=== PATIENT | male | born 1965 | race Caucasian/White ===

== ENCOUNTER 2021-03-05 23:38 | Inpatient (IN) | payer OTHER ==
[2021-03-06] MEDS ORDERED: ACETAMINOPHEN TAB 650MG DOSE (2X325MG) PO PRN (03:35)
[2021-03-06] MEDS ORDERED: MAALOX 30 ML SUSP *UDC PO PRN (03:35)
[2021-03-06] MEDS ORDERED: MOM 30ML SUSPENSION UDC PO PRN (03:35)
[2021-03-06] MEDS ORDERED: hydrOXYzine 50 MG TAB PO PRN (03:35)
[2021-03-06] MEDS ORDERED: traZODone 50 MG TAB PO PRN (03:35)
[2021-03-06 05:24] VITALS: BP 124/81
[2021-03-06] MEDS: NICOTINE 21MG/24HR 1 EA TRANSDERMAL TD SCH (09:00)
--- NOTE | 2021-03-06 11:45 | MHHPEPDOC ---
General Date Of Admission: March 05, 2021 Legal Status: Chief Complaint "Dr Zambrano didn't like my responses in the Depression questionnaire" History of Present Illness HISTORY OF THE PRESENT ILLNESS: Patient is a 55 -year-old ,domicile, male, who was admitted to [facility] on legal status after being transferred from [facility], where he had reported after being sent to the ED by his primary care provider . Patient states that he reported for an appointment with , his primary care physician. States that he made an appointment to see the Doctor because he has been very depressed . States that he filled out the depression questionnaire at the doctor's office and the doctor "didn't like my responses to the Depression questionnaire". Says he was found to be severely depressed and advised to go to the emergency department. Says his daughter drove him to [facility], and later was transferred to [place] [facility]. Patient states that he's been " in a dark place" recently. Says that has been getting more and more depressed. Says he has had depressive symptoms for "years". Says it started when he was kicked out of high school for drug use. Says he has had many stressors in his life over the years like; he was forced to retire out of the after 21 years of service, he has had 3 DUIs, he caught his cheating on him and they got , he recently got into a big fight with a very close friend, he lost his brother last fall and his dad 3 months ago. States that all of these stressors have become overwhelming and he was starting to "feel boxed in". He told his daughter that his depression was getting worse and they made an appointment with his primary doctor. He states that he was diagnosed with Depression around 2016 and he was supposed to be following up with [facility]. He states that he stopped going for therapy at [facility] because he had no transportation due to his [employer] driver's license being suspended, and he also stopped taking his medication because his insurance was not paying and he was unable to afford medication. States that he does not remember what medication was prescribed at that time. States that he was an alcoholic, was drinking up to 18 pack a night, but he quit drinking 6 years ago. He stopped smoking cigarettes 3 years ago. Denies using any other substances .States that over the past 3 weeks he has been feeling depressed, worthless, hopeless, stressed and has had difficulty concentrating . States that he was becoming overwhelmed and was starting to feel " boxed in". States that he realizes he needs to be back on medication for Depression and start seeing a therapist again. He hopes to be set up with followup with [facility] because it is closer to him. He denies current suicidal ideations. Denies HI/AH/VH. PER ED REPORT; Pt was transferred from [facility] for a MHE. Pt was medically cleared at [facility]. Per records from [facility], pt has SI with no plan.. Pt states that he talked to his daughter about being depressed & so she made him an appointment with a primary care provider to discuss this. Pt states that he went to his first appointment with the PCP & had to fill out a questionnaire about depression & SI. Pt states that he scored "high risk" & was sent to [facility] ED. Pt states "I'm not in a good place." He states that he has SI but states "everyone thinks about suicide." He initially denied having a plan, but then stated "I don't have any guns or knives at home, but I do have nail guns & scissors." He states that he often thinks that he would be better off . When asked if he has any intent to act on the suicidal thoughts he states "I would never kill myself. But you never know, I might step down further at any point." Pt denies HI. He denies any hx of suicide attempts or self-harm. Pt denies both AH & VH. He does not appear to be psychotic. Pt reports racing thoughts & mood swings. He states that he suddenly becomes angry for no reason & "explodes." Pt states that he is pushing his friends away with his angry outbursts & he is lonely. Pt c/o depressed mood, anxiety, anger, poor concentration, decreased energy levels, poor sleep, & erratic appetite. Main triggers are that he lives alone & feels lonely, his brother last fall, his father three months ago, & he recently got into a fight with a friend. Pt was in the for 21 years & then retired. 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 Pt states that he has never been dx with a mental health px. He denies any hx of admissions. He does not currently have OP tx. Pt denies drug use & his tox screen was negative. Pt has a long hx of alcohol abuse. He has been sober for six years, but prior to that he drank an 18-pack of beer daily. Pt was arrested for DWI x3 & does not currently have a license. Pt states that he wants to be admitted to [facility] because he needs to start feeling better & needs to be put on meds. Pt initially thought that the ED MD would prescribe him psych meds but TW informed him that this is not the case. Psychiatric Review of Systems Depression (2 or more weeks): depressed mood, anhedonia, feelings of worthlesness, difficulty concentrating Noemí (4 or more days of): denies Psychosis: denies PTSD: denies Anxiety: stressor related anxiety Anxiety/ 6 months or more of: difficulty concentrating, irritability, muscle tension Past Psychiatric History Previous Psychiatric Diagnosis: Depression Previous Psychiatric Admissions: Denies Suicide Attempts: Denies Psychiatric Follow-up:Used to follow up with [facility] in 2016 Psychiatric medications: None Past Medical History Medical Problems Denies Head Injury: No Seizures: No Hospitalizations: No Surgeries: No Family Medical/Psychiatric HX Psychiatric Disorders: No Addiction: No Suicide Attemps/Completions: No Addiction History nicotine (Quit in 2018), alcohol (Quit in 2014) Social History Childhood: " Good". patient says but he was kicked out of high school for drug use Abuse/Trauma:Denies. Current Living Situation: Lives alone Education: Some College Employment: Yes Social Support: His adult daughter is supportive Legal: Denies any current. History of DUI's Marital: Mental Status Examination General Appearance: appears stated age, hospital scubs/clothing Build: average Demeanor: guarded Eye Contact: avoidant Activity: average Behavior: loss of interests Speech: clear, normal volume, reg/rate,rhythm,volume Mood: depressed, irritable Affect: constricted Thought Process: logical/linear Thought Content (Delusions): none reported Thought Content (Other): none reported Thought Content (Aggressive): none reported Perception (Hallucinations): none reported Perception (Other): none reported Cognition (Impairment of): none reported Cognition(Intelligence Est.): average Oriented: Awake, Alert, Oriented times three Insight: fair Judgment: Fair Psychosis: Denies Diagnoses Major Depressive Disorder, single episode, moderate A-FIB/CHADSVASC A-FIB History Current/History of A-Fib/PAF?: No Current PO Anticoag Therapy: No Assessment Patient is seen today. He is dressed in a hospital gown but appears well kempt.. He is alert and oriented X 3. He reports that he came in because his primary doctor " didn't like his responses in the Depression questionnaire" . He explains that he has been getting more and more depressed. Says that he has had depressive symptoms for "years". Says it started years ago when he was kicked out of high school for drug use. Says he has had many stressors in his life over the years like like ; he was forced to retire out of the after 21 years of service, he has had 3 DUIs, he caught his cheating on him and they got , he recently got into a big fight with a very close frien d, he lost his brother last fall and his dad 3 months ago. States that all of these stressors have become overwhelming and he was starting to "feel boxed in". He told his daughter that his depression was getting worse and they made an appointment with his primary doctor. He states that he was diagnosed with Depression around 2016 and he was supposed to be following up with [facility]. He states that he stopped going for therapy at [facility] because he had no transportation due to his [employer] driver's license being suspended, and he also stopped taking his medication his insurance was not paying and he was unable to afford them. States that he does not remember what medication was prescribed at that time. States that he was an alcoholic, was drinking up to 18 pack a night, but he quit drinking 6 years ago. He stopped smoking cigarettes 3 years ago. Denies using any other substances .States that over the past 3 weeks he has been feeling depressed, worthless, hopeless, stressed and difficulty concentrating .States that he realizes he needs to be back on medication for depression and needs to start seeing a therapist again. He hopes to be set up with followup with [facility] because it is closer to him. He states that he is depressed but states he feels better that yesterday and asking if he can be discharged tomorrow. He denies current suicidal ideations. Denies HI/AH/VH. He has been started on Zoloft 50 mg daily. He states that he has mostly been keeping to himself in his room since he was admitted. Encouraged him to interact with staff and peers and attend group sessions. Initial Treatment Plan 1. Patient was admitted on a [9.39] status. 2. Complete history was obtained. 3. With patients permission, family will be contacted and database will be expanded. 4. Patients medication regimen will be reviewed and changed accordingly. 5. Patient will be provided with protected environment. 6. Patient will be treated with individual, group, and milieu therapies. 7. Patient will receive supportive psych-education. 8. Discharge planning will commence immediately. 9. Outpatient follow-up treatment will be strongly recommended. 10. The initial treatment plan will focus initially on: * Depression. * Interpersonal conflict ESTIMATED LENGTH OF STAY: 3 to 7 DAYS. TIME SPENT COUNSELING AND COORDINATING INITIAL CARE: 60 minutes. N/A-No Antipsychotics Vital Signs Vital Signs Date Time Temp Pulse Resp B/P (MAP) Pulse Ox O2 Delivery O2 Flow Rate FiO2 03/06/21 05:24 97.8 59 20 124/81 (95) 98 Room Air Medications No Active Prescriptions or Reported Meds Allergies Coded Allergies: No Known Allergies (Unverified , 03/06/21) HEATHER ACOSTA NP March 06, 2021 11:45
--- NOTE | 2021-03-06 16:31 | HPEPDOC ---
[facility] Medical History & Physical Date of Admission March 06, 2021 Date of Service: March 06, 2021 History and Physical Chief complaint: Who presented to [facility] first was ideation History of present illness: Patient is a 55-year-old male with no significant past medical history who presented to the emergency room from his primary care providers office for suicidal ideation. Patient was admitted to the psychiatric service in the inpatient mental health unit. Hospitalist service was consulted for medical screening evaluation. Currently patient denies any headache, nausea, vomiting, chest pain, short of breath, palpitations experiencing abdominal pain, constipation, diarrhea, or urinary discomfort. Patient reports that his appetite and weight have been fairly consistent. 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 Review of Systems: 10 point review of systems complete, all negative otherwise stated in HPI Physical exam: - Vitals: BP [124/81], HR [59], RR [20], Sat [98%RA], Temp [97.8F] - General: Sitting up in bed, Speaking in full sentences, AAOx3 - HEENT: NC, AT, PERRLA - CVS: RRR, +S1S2, - Murmurs / rubs / gallops - Lungs: Fair air entry bilaterally, No appreciable wheezing / rales / rhonchi - Abdomen: Soft, Non-distended, Non-tender - Extremities: No lower extremity edema, No calf tenderness - Neuro: No focal motor or sensory deficit - Skin: No visible rashes Labs: See below Imaging: See below EKG: See below Assessment and Plan: Suicidal ideation - Patient was admitted to the inpatient mental health unit under the care of psychiatry - Currently being managed by psychiatry No significant past medical history DVT prophylaxis - Will continue with early ambulation Female nut sorter was present throughout the duration of this history and physical examination Thank you for this consultation; hospitalist service will now sign off, please reconsult as needed Vital Signs Vital Signs Date Time Temp Pulse Resp B/P (MAP) Pulse Ox O2 Delivery O2 Flow Rate FiO2 03/06/21 05:24 97.8 59 20 124/81 (95) 98 Room Air Home Medications No Active Prescriptions or Reported Meds Allergies Coded Allergies: No Known Allergies (Unverified , 03/06/21) GISELLE VORA MD March 06, 2021 16:31
[2021-03-06 18:00] VITALS: BP 127/66
[2021-03-06] MEDS ORDERED: SERTRALINE HCL 50 MG TAB PO SCH (21:00)
[2021-03-07 07:11] VITALS: BP 142/63
[2021-03-07] MEDS: NICOTINE 21MG/24HR 1 EA TRANSDERMAL TD SCH (09:00)
[2021-03-07] MEDS ORDERED: SERT50TA29 PO (09:14)
--- NOTE | 2021-03-07 15:35 | MHDSPDOC ---
[facility] Discharge Summary Discharge Summary DATE OF ADMISSION: March 06, 2021 at 03:35 DATE OF DISCHARGE: March 07, 2021 at 0915 DISCHARGE DIAGNOSES: Major Depressive Disorder, single episode, moderate REASON FOR ADMISSION: Patient is a 55 -year-old ,domicile, male, who was admitted to [facility] on 39 legal status after being transferred from [facility], where he had reported after being sent to the ED by his primary care provider . Patient states that he reported for an appointment with , his primary care physician. States that he made an appointment to see the Doctor because he has been very depressed . States that he filled out the depression questionnaire at the doctor's office and the doctor "didn't like my responses to the Depression questionnaire". Says he was found to be severely depressed and advised to go to the emergency department. Says his daughter drove him to [facility], and later was transferred to [facility]. Patient states that he's been " in a dark place" recently. Says that has been getting more and more depressed. Says he has had depressive symptoms for "years". Says it started when he was kicked out of high school for drug use. Says he has had many stressors in his life over the years like; he was forced to retire out of the after 21 years of service, he has had 3 DUIs, he caught his cheating on him and they got , he recently got into a big fight with a very close friend, he lost his brother last fall and his dad 3 months ago. States that all of these stressors have become overwhelming and he was starting to "feel boxed in". He told his daughter that his depression was getting worse and they made an appointment with his primary doctor. He states that he was diagnosed with Depression around 2016 and he was supposed to be following up with [facility]. 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 States that he does not remember what medication was prescribed at that time. States that he was an alc oholic, was drinking up to 18 pack a night, but he quit drinking 6 years ago. He stopped smoking cigarettes 3 years ago. Denies using any other substances .States that over the past 3 weeks he has been feeling depressed, worthless, hopeless, stressed and has had difficulty concentrating . States that he was becoming overwhelmed and was starting to feel " boxed in". States that he realizes he needs to be back on medication for Depression and start seeing a therapist again. He hopes to be set up with followup with [facility] because it is closer to him. He denies current suicidal ideations. Denies HI/AH/VH. PER ED REPORT; Pt was transferred from [facility] for a MHE. Pt was medically cleared at [facility]. Per records from [facility], pt has SI with no plan.. Pt states that he talked to his daughter about being depressed & so she made him an appointment with a primary care provider to discuss this. Pt states that he went to his first appointment with the PCP & had to fill out a questionnaire about de pression & SI. Pt states that he scored "high risk" & was sent to [facility] ED. Pt states "I'm not in a good place." He states that he has SI but states "everyone thinks about suicide." He initially denied having a plan, but then stated "I don't have any guns or knives at home, but I do have nail guns & scissors." He states that he often thinks that he would be better off . When asked if he has any intent to act on the suicidal thoughts he states "I would never kill myself. But you never know, I might step down further at any point." Pt denies HI. He denies any hx of suicide attempts or self-harm. Pt denies both AH & VH. He does not appear to be psychotic. Pt reports racing thoughts & mood swings. He states that he suddenly becomes angry for no reason & "explodes." Pt states that he is pushing his friends away with his angry outbursts & he is lonely. Pt c/o depressed mood, anxiety, anger, poor concentration, decreased energy levels, poor sleep, & erratic appetite. Main triggers are that he lives alone & feels lonely, his brother last fall, his father three months ago, & he recently got into a fight with a friend. Pt was in the for 21 years & then retired. 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 Pt states that he has never been dx with a mental health px. He denies any hx of admissions. He does not currently have OP tx. Pt denies drug use & his tox screen was negative. Pt has a long hx of alcohol abuse. He has been sober for six years, but prior to that he drank an 18-pack of beer daily. Pt was arrested for DWI x3 & does not currently have a license. Pt states that he wants to be a dmitted to [facility] because he needs to start feeling better & needs to be put on meds. Pt initially thought that the ED MD would prescribe him psych meds but TW informed him that this is not the case. Consultants Involved: See H + P by Hospitalist TREATMENT AND PROGRESS ON THE UNIT: Patient was admitted to the [facility] on a legal status he was afforded the following treatment modalities: 1) Individual Therapy 2) Group Therapy 3) Medication Management 4) Milieu Therapy 5) Safe Environment HOSPITAL COURSE: Patient was admitted to [facility] on a legal status. He was observed for 48 hours and he voices no suicidal thoughts, he denies depression that warrants continued hospitalization. Has good supports with son and daughter, wants to see a therapist regarding grief and stressors. He has legal issues, financial problems and interpersonal conflicts but none are overwhelming him at this time. He is requesting discharge and treatment team feel he is safe to be sent home today. DISCHARGE ASSESSMENT: In today's interview, patient is alert and oriented, pts dress is appropriate. Hygiene and grooming is well-kempt. Smiles on approach and is pleasant and engaged in the interview. Denies depression and anxiety. Denies suicidal and homicidal ideation, planning or intent. Denies and is not observed with francesca, psychotic symptoms of delusions, bizarre thinking, o bsessions, paranoia, ruminations illogical thoughts, flight of ideas or having poor insight and judgment. Patient has normal mentation, declines further hospitalization on a voluntary status and meets criteria for discharge today. MENTAL STATUS EXAMINATION ON DISCHARGE: Patient is a 55 -year-old ,domicile, male, who was admitted to [facility] on legal status after being transferred from [facility], where he had reported after being sent to the ED by his primary care provider scoring high depression questionnaire, has multiple stressors, and vague suicidal thoughts. Speech: Is fluid, conversant, normal rate, tone and volume Language skills are intact Thought processes including: linear and goal oriented Thought content: denies depression and anxiety. Denies suicidal/homicidal ideation, planning or intent. Abstract reasoning, and computation: fair Description of associations: denies, none observed Description of abnormal or psychotic thoughts: denies, none observed. Judgment: fair Insight: fair Orientation: alert and oriented to person, place, time and situation Recent and remote memory: intact Attention span and concentration: good Language: expansive Fund of knowledge: average Mood: Euthymic Mood Affect: reactive MEDICATIONS ON DISCHARGE: See Medication Reconciliation PLAN/FOLLOWUP ARRANGEMENTS: Patient is following up with [facility] The amount of time spent in the coordination of care for this patient was approximately 25 minutes. ETOH/Disorder Med Rx ETOH/DRUG DISORDER RX: N/A Vital Signs/I&Os Vital Signs Date Time Temp Pulse Resp B/P (MAP) Pulse Ox O2 Delivery O2 Flow Rate FiO2 03/07/21 07:11 98.5 58 20 142/63 (89) 100 Room Air Medications Scheduled Sertraline HCl (Sertraline HCl) 50 Mg Tablet, 50 MG PO QHS for Depression, #7 Allergies Coded Allergies: No Known Allergies (Unverified , 03/06/21) HEATHER ACOSTA NP March 07, 2021 09:15
== END 2021-03-07 10:05 | disposition home or self-care (01) | DRG 885 ==
LOC: M ED 23:38 → M ED INP 03-06 03:35 → M PSY 03-06 04:47
PROVIDERS: ADMIT Psychiatry & Neurology Psychiatry; ATTEND Psychiatry & Neurology Psychiatry
DX: F32.1 Major depressive disorder, single episode, moderate (principal); R45.851 Suicidal ideations; Z87.891 Personal history of nicotine dependence; Z63.4 Disappearance and death of family member; Z63.0 Problems in relationship with spouse or partner